=== PATIENT | female | born 1960 | race Caucasian/White ===

== ENCOUNTER 2023-04-12 02:37 | Inpatient (IN) | payer OTHER, SELFPAY ==
[2023-04-11 20:29] VITALS: BP 116/68
[2023-04-12 00:06] VITALS: BMI 22.7
--- NOTE | 2023-04-12 01:09 | ED.GENMED ---
History of Present Illness
General
Chief Complaint: Breathing Problem
Source: patient
Exam Limitations: none
Time Seen by Provider: 04/12/23 00:18
Travel History
Have you had any contact with someone who has COVID-19?: No
Do you have any symptoms of coronavirus? Fever > 100 degrees, chills, cough, shortness of breath, sore throat, loss of taste or smell, muscle aches, or headache?: No
History of Present Illness
History of Present Illness:
This is a 62 year old female that comes in with c/o right sided lower chest pain. States that she was here in January and diagnosed with PNA. States that she started on Tuesday with right lower lung pain that goes up into her shoulder. States that
she went to Urgent Care on Tuesday and they did an X-ray and told her she has Pneumonia. States that they gave her Zithromax but she did not take any until she talked with Dr. Warren. States that he said that is not what he would have use and told
her to come to the ER for evaluation. States that she has had a headache. States that she just finished Amoxicillin on . Denies any fever, chills, SOB, abd pain nausea, vomiting, diarrhea, dizziness, urinary burning.
Past History
Past History
ED Past Medical History: Hypothyroidism, Other (Pneumonia, pleurisy, Sjogren's syndrome, ) and Other (history of bronchitis)
ED Past Surgical History: Gynecological (D. and C.)
Social History
Tobacco: Non-smoker
Alcohol: None
Personal:
Living: with family
Employment: Employed
Family History
Family History: Other (Noncontributory)
Review of Systems
Review of Systems
All Other Systems: ROS reviewed and negative except as documented in HPI and ROS
Constitutional: Reports no symptoms; Denies fever or chills
Respiratory: Reports cough; Denies trouble breathing
Cardiac: Reports chest pain (Right sided up into shoulder)
ABD/GI: Reports no symptoms; Denies abdominal pain, nausea, vomiting or diarrhea
: Reports no symptoms; Denies dysuria, frequency or urgency
Musculoskeletal: Reports no symptoms
Skin: Reports no symptoms
Neurological: Reports headache; Denies dizzy
Psychiatric: Reports no symptoms
Phy Exam
General Physical Exam
General Presentation: no apparent distress
General age: appears stated age
General Skin: warm and dry
General Habitus: normal
General Mental: alert
General Hydration: appears well hydrated
ENT Exam
ENT Exam: TM's normal, pharynx normal and neck supple
Eye Exam
Eye Exam: EOMI
Cardiovascular Exam
Cardiovascular Exam: regular rate/rhythm, no edema, no murmur and normal peripheral pulses
Pulmonary Exam
Pulmonary Exam: no respiratory distress, chest non tender, no rhonchi, no wheezing, no cough and other (Very fine crackles at bases)
Gastrointestinal Exam
Gastrointestinal Exam: normal bowel sounds, non tender, soft, no organomegaly, no pulsatile mass and non distended
Musculoskeletal Exam
Musculoskeletal Exam: full ROM and no edema
Skin Exam
Skin Exam: normal color, warm/dry, no rash and no petechia
Psychiatric Exam
Psychiatric Exam: normal mood/affect
Scores
Heart Failure Risk
Heart Failure Risk Score: Not Applicable
Course
Orders/Labs/Results
Orders:
Orders
04/12/23 01:21
Azithromycin 500 mg/250 ml [Zithromax Infusion] 500 mg in 250 ml IV NOW
CefTRIAXone [Rocephin] 1,000 mg IV NOW STA
04/12/23 02:05
Complete Blood Count/With Diff Urgent
Comprehensive Metabolic Panel Urgent
Lactic Acid Urgent
04/12/23 02:17
Admit/Transfer Patient As Directed
Co-Sign Provider:
Level of Care: Inpatient admission
Assign to:: Medical/Surgical
Physician / Group: [email or web address]
Diagnosis: PNA, Pending admission labs
Reason for Hospitalization: PNA , Pending admission labs
Expected length of stay greater than two midnights?: Yes
ELOS- Estimated Length of Stay in days: 3
I certify the patient meets the requirements for IP care: Yes
04/12/23 02:18
Code Status As Directed
Resuscitation Status: Full Code
04/12/23 02:26
CT Chest Pe Study Urgent
Comment:
Reason For Exam: right sided chest pain.
Abnormal Lab Results
04/12/23
02:05
WBC 4.7 L 10^3/uL
(4.8-10.8)
RBC 3.95 L 10^6/uL
(4.20-5.40)
Hct 34.4 L %
(37.0-47.0)
Absolute Lymphs (auto) 1.1 L 10^3/uL
(1.2-3.4)
Monocytes % 13.1 H %
(1.7-9.3)
04/12/23 02:05
04/12/23 02:05
WBC very slightly low. Otherwise labs unremarkable.
Vital Signs
Initial and Last Documented VS:
Initial Vital Signs
Temp Pulse Resp BP Pulse Ox
98 F 72 22 116/68 96
04/11/23 20:29 04/11/23 20:29 04/11/23 20:29 04/11/23 20:29 04/11/23 20:29
Last Documented Vital Signs
Temp Pulse Resp BP Pulse Ox
97.9 F 70 20 120/54 98
04/12/23 04:14 04/12/23 04:14 04/12/23 04:14 04/12/23 04:14 04/12/23 04:14
MDM/Problems Addressed
Differential Diagnosis Includes:
PNA,
MDM/Problems Addressed:
This is a 62 year old female that comes in with c/o right lower lung discomfort that goes up into the shoulder. Patient was seen Tuesday at Urgent care and had a chest x-ray. Told that she had Pneumonia and given Zithromax. Patient did not start this
until she talked with Dr. Warren. States that she was told to come to the ER for evaluation. Patient had just finished Amoxicillin on .
Will check labs.
Back into see patient. Explained that her chest x-ray at shows that patient has bilateral lower lobe Pneumonia. Patient was treated for Pneumonia in January and just finished Amoxicillin on . Will admit for IV antibiotics. Hospitlist
notified.
Chronic conditions affecting care: Other (PNA in the past)
Acute Exacerbation and/or Progression of Chronic Illness:
NA
*Radiology
Radiology exam reviewed: radiology read reviewed (Chest done at on 04/10/23=Bilateral lower lobe Pneumonia. CT chest night hawk- Patchy opacities in the lower lungs suspicious for pneumonia. Notable, much of this appears similar to previous CT
02/03/2023 suggesting chronic or persistent pneumonia, limited without interval imaging for comparison. ), all reviewed NAD by ED Provider (CT cont- Obviously, cannot exclude acute on chronic infection. Some of these opacities also appear quite
nodular, therefore unable to exclude if some of this could reflect metastatic disease. Correlate with patient's symptoms and recommend nonurgent Pulmonolgy and infectious disease consultations. ) and other (CT cont- No pulmonary embolus. No aortic
dissection or aneurysm. Heart size within normal limit. No Pneumothorax Trace right pleural effusion. Mild cardiomegaly. )
*Pulse Oximetry
Patient hypoxic: no
*EKG
Interpreted by ED Provider?: NA
Rate: EKG- N/A
*[employer] Jointer Interpretation
Rate: normal
Heart Rate: 71
Rhythm: sinus
*Critical Care Note
Total Time (30-74mins, 75-104mins- exclusive of procedures): Not Applicable
ED Attending Note
-
Portions of this chart may have been created with voice recognition software.� Occasional wrong word or��sound alike� substitutions may have occurred due to the inherent limitations of voice recognition software.
Discharge Plan
Departure
Patient Disposition: Admit
Date of Disposition: 04/12/23
Time of Disposition: 01:30
Admit to: Med/Surg
Presentation/result/management discussed w/ accepting MD/DO: Hospitalist
Patient with high blood pressure during this ER visit?: No
Condition: Good
Covid-19: Not Applicable
Discharge Problem:
Pneumonia of both lower lobes
Interventions
Interventions:
*Risk Screen - Suicide Last Done: 04/11/23 20:29
*General Assessment Last Done: 04/12/23 00:08
*Neglect/Abuse Screening Last Done: 04/11/23 20:29
ED- Fall Risk Assessment Last Done: 04/12/23 02:45
*ED COVID-19 Vaccine History Last Done: 04/12/23 00:07
ED- Cardiac Assessment Last Done: 04/12/23 04:14
ED- Pulmonary Assessment Last Done: 04/12/23 04:14
--- NOTE | 2023-04-12 02:12 | HPS.HSE ---
Addendum entered and electronically signed by Jack Moses MD 04/12/23 05:53:
CTA chest. - no PE but persistent PNA.
Addendum entered and electronically signed by Jack Moses MD 04/12/23 03:34:
Unremarkable CBC and CMP
Pending procalcitonin.
Pending CTA chest
Original Note:
Family Physician
-
Family Physician: Yahir John
Chief Complaint
-
Rt sided CP
History of Present Illness
62F HX Hypothyroidism, Pneumonia, pleurisy, Sjogren's syndrome, pw Rt sided lower chest pain.
Started on Tuesday with right lower lung pain that goes up into her shoulder. States that she went to Urgent Care on Tuesday and they did an X-ray and told her she has Pneumonia prescribed Zithromax but not yet stated
She just finished Amoxicillin on .
ROS
Denies any fever, chills, SOB, abd pain nausea, vomiting, diarrhea, dizziness, urinary burning.
Medical History
Past Medical History
Past Medical History: Reports Other
Additional Past Medical History:
Hypothyroidism, Other (Pneumonia, pleurisy, Sjogren's syndrome, ) and Other (history of bronchitis)
Past Surgical History: Reports Gynocological (D. and C.))
Social History
Tobacco: Non-smoker
Alcohol: None
Personal:
Employment: Employed
Family History
Family History: Not pertinent
Allergies / Home Medications
Allergies reflects when Allergies were last updated in [facility].
Home Medications with original date entered in [facility]
Allergy/Medication List:
Allergies
Allergy/AdvReac Type Severity Reaction Status Date / Time
Sulfa (Sulfonamide Allergy Unknown Verified 04/11/23 20:33
Antibiotics)
Home Medications
Calcium 1 tab PO DAILY 06/06/12
Synthroid: 50 mcg PO DAILY 06/06/12
multivitamin (Daily Multi-Vitamin tablet) 1 ea PO DAILY 06/06/12
vitamin B complex 1 ea PO DAILY 06/06/12
hydroxychloroquine 200 mg tablet 300 mg PO DAILY 04/12/14
Lactobacillus comb.no7 10 billion cell-FOS 100 mg-inulin 100 mg tablet (Probiotic Complex (Inulin)) 1 ea PO HS 01/15/15
ibuprofen 600 mg tablet 600 mg PO TIDPRN PRN pain, take with food #30 tabs 01/16/15
cephalexin 500 mg capsule 500 mg PO TID #30 caps 07/02/15
doxycycline hyclate 100 mg capsule 100 mg PO BID Lung/breathing issues #20 caps 02/04/23
Review of Systems
-
Constitutional: Reports No Symptoms
EENT: Reports No Symptoms
Respiratory: Reports See HPI
Cardiac: Reports No Symptoms
Abdomen/GI: Reports No Symptoms
: Reports No Symptoms
Musculoskeletal: Reports No Symptoms
Skin: Reports No Symptoms
Neurological: Reports No Symptoms
Endocrine: Reports No Symptoms
Hematologic/Lymphatic: Reports No Symptoms
Psych: Reports No Symptoms
Physical Exam
Vital Signs
Vital Signs
Temp Pulse Resp BP Pulse Ox
98 F 72 22 116/68 97
04/11/23 20:29 04/11/23 20:29 04/11/23 20:29 04/11/23 20:29 04/12/23 00:11
Physical Exam
General: Other (see below )
Laboratory Results
-
Pending admission labs
Data Reviewed
-
Diagnostic Radiology: Report Reviewed by me
Lab Data: Labs Reviewed by me
Impression/Plan
-
Reviewed VS: unremarkable afebrile, BP 116/68
PE
Gen: NAD
HEENT: anicteric
Neck: supple
Lungs: fine basilar rales at basess
Cor: RRR S1S2
Abdomen: soft benign
CRATING AND MOVING ESTIMATOR: AAO3 NFND
MS: no edema
Psych: normal mood/affect
Data: Pending admission labs
04/10/23 CXR: Bibasilar pneumonia.
Last hospitalist admission:
ASSESSMENT & PLAN
Bilateral LL PNA - CAP
Suspect Rt sided pleurisy
HX PNA in January 2023
S/p completed amoxicillin on .
- agree with IV CFTZ and PO Azithromycin
- Tylenol PRN while pending admission labs
- Pending admission labs
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
DVT Px: LMWH
Code: Full code
IP MS
[2023-04-12] MEDS: ROCEPHIN 1000 MG IV (02:19)
[2023-04-12 02:25] LABS: % Basophils 0.4 % (0-2); % Eosinophils 2.5 % (0-6); % Immature Granulocytes 0.2 % (0-0.5); % Lymphocytes 22.5 % (20.5-51.1); % Monocytes 13.1 % (1.7-9.3); % Neutrophils 61.3 % (42.2-75.2); Absolute Eosinophils 0.1 10^3/uL (0-0.7); Absolute Lymphocytes 1.1 10^3/uL (1.2-3.4); Absolute Monocytes 0.6 10^3/uL (0.1-0.6); Absolute Neutrophils 2.9 10^3/uL (1.4-6.5); Hematocrit 34.4 % (37.0-47.0); Hemoglobin 12.1 g/dL (12.0-16.0); Mean Corp Hgb Conc. 35.2 g/dL (33.0-37.0); Mean Corpuscular Hgb 30.6 pg (27.0-31.0); Mean Corpuscular Volume 87.1 fL (81.0-99.0); Mean Platelet Volume 9.6 fL (7.4-10.4); Nucleated Red Blood Cells % 0 %; Platelet Count 187 10^3/uL (130-400); Red Blood Cell Count 3.95 10^6/uL (4.20-5.40); Red Cell Dist. Width 12.1 % (11.5-14.5); White Blood Cell Count 4.7 10^3/uL (4.8-10.8)
[2023-04-12 02:31] LABS: Lactic Acid 0.8 mmol/L (0.7-2.0)
[2023-04-12] MEDS: ZITHROMAX INFUSION 250 IV (02:33)
[2023-04-12 02:37] LABS: ALT (SGPT) 16 U/L (0-35); AST (SGOT) 23 U/L (14-36); Albumin 3.6 g/dl (3.5-5.0); Alkaline Phosphatase 97 U/L (38-126); Blood Urea Nitrogen 13 mg/dl (7-17); Calcium 8.7 mg/dl (8.4-10.2); Carbon Dioxide 24 mmol/L (22-30); Chloride 107 mmol/L (98-107); Estimated Creatinine Clearance 82 ml/min; Glucose 95 mg/dl (70-99); Potassium 3.8 mmol/L (3.5-5.1); Sodium 135 mmol/L (135-145); Total Bilirubin 0.5 mg/dl (0.2-1.3); Total Protein 6.5 g/dl (6.3-8.2); eGFR > 60.00
[2023-04-12 03:48] VITALS: BP 124/61
[2023-04-12 04:14] VITALS: BP 120/54
[2023-04-12 04:58] VITALS: BP 139/72; BMI 22.2
[2023-04-12] MEDS: TYLENOL 650 MG PO (05:27)
--- NOTE | 2023-04-12 05:28 | PTCARENOTE ---
Received patient from ER, AAOx4. Patient able to ambulate from stretcher to bed with steady gait. C/o right chest pain, WAXER FLOOR aware and ordered PRN tylenol. Patient oriented to unit, call nolasco in reach. Plan of care continues.
[2023-04-12 05:31] LABS: Hematocrit 35.1 % (37.0-47.0); Hemoglobin 12.1 g/dL (12.0-16.0); Mean Corp Hgb Conc. 34.5 g/dL (33.0-37.0); Mean Corpuscular Hgb 30.6 pg (27.0-31.0); Mean Corpuscular Volume 88.9 fL (81.0-99.0); Mean Platelet Volume 9.8 fL (7.4-10.4); Platelet Count 174 10^3/uL (130-400); Red Blood Cell Count 3.95 10^6/uL (4.20-5.40); White Blood Cell Count 4.6 10^3/uL (4.8-10.8)
[2023-04-12 05:51] LABS: Blood Urea Nitrogen 11 mg/dl (7-17); Calcium 8.4 mg/dl (8.4-10.2); Carbon Dioxide 23 mmol/L (22-30); Chloride 109 mmol/L (98-107); Estimated Creatinine Clearance 82 ml/min; Glucose 88 mg/dl (70-99); Sodium 136 mmol/L (135-145); eGFR > 60.00
[2023-04-12 05:54] LABS: Procalcitonin < 0.05 ng/ml (0.0-0.25)
[2023-04-12 07:00] VITALS: BP 136/64
[2023-04-12] MEDS: PLAQUENIL 200 MG PO (09:03)
[2023-04-12] MEDS: SYNTHROID 50 MCG PO (09:04)
[2023-04-12] MEDS: B COMPLEX w/VITAMIN C 1 CAPLET PO (09:04)
--- NOTE | 2023-04-12 14:49 | W.PN.UPDATE ---
Addendum entered and electronically signed by Pepe Mccollum MD 04/12/23 18:41:
Seen by Dr. Grajeda who communicated with me that the patient would require a bronchoscopy which he is going to arrange as an outpatient and she is cleared from his standpoint for home. He is also not seeing evidence for any bacterial pneumonia
currently. From his standpoint no indication for antibiotics.
Patient has been afebrile and nontoxic. Minimal elevation in CRP noted. Again white count normal with normal proBNP. Hold further antibiotics. Patient advised to call pulmonary if there is any fever, cough, phlegm or does not feel well after
discharge. Advised symptomatic treatment of Tylenol and ibuprofen for pleuritic chest pain.
Original Note:
Update Note
Progress Note Update
Admitted for right lower lobe pleuritic chest pain. Admitting diagnosis possible pneumonia
Antibiotics.
Patient without prodrome of respiratory symptoms. No fever, cough or phlegm. . Nontoxic looking.
Chest clear without any respiratory distress. Not hypoxic.
White count normal. Procalcitonin normal.
Chest CT shows
1. No evidence of pulmonary embolism or thoracic aortic dissection.
2. Patchy foci of reticular nodular opacity within each lower lung zone, with associated traction bronchiectasis, similar in appearance compared to 02/03/2023. Differential diagnosis includes acute interstitial pneumonia/pneumonitis, chronic
indolent infection, and chronic interstitial fibrosis.
3. Bilateral lung nodules, similar compared to most distant prior CT dated 02/03/2023. Lung neoplasm and metastatic disease is considered unlikely given sparing of the mid and upper lung zones on each side, however continued CT surveillance is
suggested.
Consult pulmonary to evaluate for any noninfectious lung pathology. She has a history of Sjogren syndrome with prior pneumonias.
Follow culture data and if negative will hold further antibiotics.
[2023-04-12 15:00] VITALS: BP 121/67
--- NOTE | 2023-04-12 15:14 | PTOTSP ---
Patient demonstrates independence with functional mobility, endurance, ambulation and elevations without need for assistive device.
Does not currently demonstrate continued need for skilled therapy and will be discharged at this time. If needs change, please re-consult.
--- NOTE | 2023-04-12 16:11 | CM ---
Chart reviewed. Spoke with pt at bedside
Pt lives in ranch style home with and family members
Independent. driving
No DME
Denies past HH/SNF
PCP -Dr Trevino
Pharm - [facility]
CM will follow for d/c needs
Plan - anticipate home - no needs
[2023-04-12 16:15] LABS: Erythrocyte Sed Rate 34 mm/hour (0-20)
--- NOTE | 2023-04-12 17:14 | CON.PUL ---
Consultation
Consultation Request
Date/Time Consultation Requested: 04-12-23
Date/Time Consultation Performed: 04-12-23
Requesting Provider: Hospitalist
Performing Provider: Dr Grajeda
Reason for Consultation: CP
Medical History
-
Chief Complaint: CP
History of Present Illness:
Mrs Latasha Clark is a 62/W adm 04-11 with recurrent pleuritic CP since Apr 2021, sometimes R sided and sometimes L. She has Sjogren's disease and is on hydroxychloroquine and eye moisturizing drops.
Presents with R lower CP which radiates to shoulder, went to on last Tuesday, reportedly CXR showed pneumonia, prescribed azithromycin but she did not take until consulting with pulm Dr Warren, Dr Warren rec to come to ER.
Reports h/o bilateral CAP (lower lobes, RML) in 02-03-23 (chest CTA negative for PE, D-dimer ^ at 1.45), treated with doxycycline for [address] Warren has been following her for h/o pneumonia, pleuritic CP, bronchiectasis, last visit on 04-07, he
was planning to repeat chest CT to see if previously seen infiltrates in Nov were an acute process that could have resolved or persist indicating a chronic process like [place] or fungal disease, the ultimate plan was to pursue BAL if indicated
Denies dyspnea or wheezing. Occasionally will present a mild cough productive of scanty light yellow sputum. Denies fever, wt loss, NS, chills, difficulties swallowing. 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
LLNS, no h/o 2nd hand smoking
Past Medical History
Past Medical History: Other (see A&P for PMH/PSH)
Social History
Tobacco: Non-smoker
Alcohol: None
Drug: None
Personal:
Living: With Family
Employment: Employed
Family History
Family History: Reviewed & Not Pertinent
Allergies / Home Medications
Allergies
Allergy/AdvReac Type Severity Reaction Status Date / Time
Sulfa (Sulfonamide Allergy Unknown Verified 04/11/23 20:33
Antibiotics)
Home Medications
Medication Instructions Recorded Confirmed Last Taken Type
Calcium 1 tab PO DAILY 06/06/12 04/12/23 04/11/23 08:00 History
Synthroid: 50 mcg PO DAILY 06/06/12 04/12/23 04/11/23 07:00 History
multivitamin (Daily Multi-Vitamin 1 ea PO DAILY 06/06/12 01/15/15 01/15/15 History
tablet)
vitamin B complex 1 ea PO DAILY 06/06/12 04/12/23 04/11/23 08:00 History
hydroxychloroquine 200 mg tablet 200 mg PO DAILY 04/12/14 04/12/23 04/11/23 20:00 History
Lactobacillus comb.no7 10 billion 1 ea PO HS 01/15/15 04/12/23 04/11/23 08:00 History
cell-FOS 100 mg-inulin 100 mg
tablet (Probiotic Complex (Inulin))
ibuprofen 600 mg tablet 600 mg PO TIDPRN PRN pain, take 01/16/15 04/12/23 04/09/23 20:00 Rx
with food #30 tabs
cephalexin 500 mg capsule 500 mg PO TID #30 caps 07/02/15 Unknown Rx
doxycycline hyclate 100 mg capsule 100 mg PO BID Lung/breathing 02/04/23 Unknown Rx
issues #20 caps
Review of Systems
-
History Source: Patient
All other systems: Negative unless noted
Cardiac: Chest Pain (R lower chest)
Vitals / Labs / Diagnostic Testing
Vital Signs
Temp Pulse Resp BP Pulse Ox
98 F 70 18 121/67 96
04/12/23 15:00 04/12/23 15:00 04/12/23 15:00 04/12/23 15:00 04/12/23 15:00
Lab Data
04/12/23 05:13
04/12/23 05:13
Diagnostic Testing:
Physical Exam
-
HEENT: Normocephalic, Moist Mucous Membranes and Thrush (n)
Cardiovascular: Regular Rhythm, Murmur (n), Peripheral Edema (n), Calf Tenderness (n) and JVD (n)
Respiratory: Wheeze (n), Rhonchi (few scattered) and Accessory Resp Muscle Use (n)
GI: Soft, Non Distended and Non Tender
Neurology: Awake, AO x 3 and No Motor Deficits
Skin: Dry
General: Respiratory Distress (n)
Assessment
-
Assessment:
Mrs Latasha Clark is a 62/W adm 04-11 with recurrent pleuritic CP since Apr 2021, sometimes R sided and sometimes L. She has Sjogren's disease and is on hydroxychloroquine. Presents with R lower CP which radiates to shoulder, went to on last
Tuesday, reportedly CXR showed pneumonia, prescribed azithromycin but she did not take until consulting with pulm Dr Warren, Dr Warren rec to come to ER. Reports h/o bilateral CAP (lower lobes, RML) in 02-03-23 (chest CTA negative for PE, D-dimer ^
at 1.45), treated with doxycycline for [address] Warren has been following her for h/o pneumonia, pleuritic CP, bronchiectasis, last visit on 04-07, he was planning to repeat chest CT to see if previously seen infiltrates in Jan were an acute
process that could have resolved or persist indicating a chronic process like [place] or fungal disease.
Impression:
Recurrent R pleuritic CP
RML/RLL/lingular irregular infiltrates with mild progression as c/w Jan 2023
New LLL irregular nodule
Deemed CAP, treated in past with doxycycline
Chronic leukopenia
Chronically elevated ESR
Acute elevation of CRP
Negative PCT
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
Sjogren's disease
Hypothyroidism
Bronchiectasis
CAP Jan 2023
D&C
Nonsmoker
Plan:
POx on RA 98%
No change in mild leukopenia, adequate absolute neutrophils, afebrile, not tachypneic, no hypotensive, negative PCT
Started on ceftriaxone/azithromycin at ER, will d/c
No change in chronic leukopenia
Normal PCT
Candidate for outpatient bronchoscopy for BAL and brushing biopsy, preferably RML, though very peripheral they are the largest target for procedure
Will schedule for later this week or next week depending on availability
D/w Dr Warren
D/w Mrs and Mr Clark
TT Dr Mccollum for discharge this evening
Diagnostic tests:
Chest CTA 04-12-23, c/w 02-03-23
FINDINGS:
Vascular: There is satisfactory opacification of the pulmonary arterial distribution. No filling defect to suggest pulmonary embolus. No evidence of thoracic aortic dissection.
Thyroid: No significant enlargement, and no significant nodules appreciated.
Supraclavicular region: No pathologic lymphadenopathy appreciated.
No pathologic axillary lymphadenopathy on either side.
Mediastinum: No pathologic mediastinal lymphadenopathy. No significant pericardial effusion. No significant coronary arterial calcification.
Lungs: Patchy reticular nodular opacities are seen within each lower lung zone. Bilateral pulmonary nodules measure up to 7 mm in diameter. Bronchiectasis is seen within the lower lobes bilaterally.
Trace right pleural fluid.
No pneumothorax on either side. No evidence of significant emphysema.
Upper abdomen: The visualized upper abdominal organs are within normal limits.
Osseous structures: Visualized osseous structures are within normal limits.
No paraspinal inflammatory change or large paraspinal mass.
IMPRESSION:
1. No evidence of pulmonary embolism or thoracic aortic dissection.
2. Patchy foci of reticular nodular opacity within each lower lung zone, with associated traction bronchiectasis, similar in appearance compared to 02/03/2023. Differential diagnosis includes acute interstitial pneumonia/pneumonitis, chronic
indolent infection, and chronic interstitial fibrosis.
3. Bilateral lung nodules, similar compared to most distant prior CT dated 02/03/2023. Lung neoplasm and metastatic disease is considered unlikely given sparing of the mid and upper lung zones on each side, however continued CT surveillance is
suggested.
--- NOTE | 2023-04-12 18:37 | W.DS.TRANS ---
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
-
Discharge Instructions:
Discharge Diagnosis/Procedures Right-sided pleuritic chest pain with no
evidence of PE; bilateral patchy reticulonodular
opacities with bilateral lung nodules of
unclear etiology
Diet Regular
Activity As tolerated
Driving Restrictions As prior to admission
Bathing Restrictions None
Instructions:
Stand-Alone Forms:
Changes to Home Medications: No
Discharge Medications:
DC Medications w/original date entered in [employer]
Calcium 1 tab PO DAILY 06/06/12
Synthroid: 50 mcg PO DAILY 06/06/12
multivitamin (Daily Multi-Vitamin tablet) 1 ea PO DAILY 06/06/12
vitamin B complex 1 ea PO DAILY 06/06/12
hydroxychloroquine 200 mg tablet 200 mg PO DAILY 04/12/14
Lactobacillus comb.no7 10 billion cell-FOS 100 mg-inulin 100 mg tablet (Probiotic Complex (Inulin)) 1 ea PO HS 01/15/15
ibuprofen 600 mg tablet 600 mg PO TIDPRN PRN pain, take with food #30 tabs 01/16/15
acetaminophen 325 mg tablet 650 mg PO Q4HPRN PRN mild pain/MELENDEZ/temp>100.5 #1 tab 04/12/23
Home Medication Changes
Pending Results: No
--- NOTE | 2023-04-12 18:41 | W.DCSUMMARY ---
Discharge Summary
Discharge Data
Date of Admission: 04/12/23
Date of Discharge: 04/12/23
-
Pending Results: No
Hospital Course
Primary diagnosis:
Right-sided pleuritic chest pain with a negative CT chest for pulmonary embolism
Patchy bilateral reticular nodular opacities in each lower lung zone
Bilateral lung nodules
Secondary diagnosis:
Sjogren syndrome
Hospital course:
Patient with history of Sjogren's syndrome and prior pneumonias presents with right-sided allergic chest pain. She was treated as an outpatient with presumed pneumonia. She finished antibiotics prior to coming into the hospital.
She had no prodrome of respiratory symptoms with cough, sore throat, phlegm, shortness of breath, or fever or chills. She was having a pleuritic chest pain on the right side.
She was afebrile and nontoxic. White count was normal. proBNP was also normal. Minimal elevation of CRP of 28 noted. Chest was clear without any reactive airway disease.
She had a CT chest which showed no evidence of PE. She had a patchy foci of reticular nodular opacity within each lower lung zones with associated traction bronchiectasis similar in appearance from 2022. There were also bilateral lung
nodules similar to prior CT Jan 2023.
Clinically did not look like infectious pneumonia concern was noninfectious/inflammatory process. A pulmonary consultation was obtained who agrees with probably being noninfectious/inflammatory and planning on to arrange for a bronchoscopy for
further evaluation. There is no indication for antibiotics, they were discontinued and was discharged home to follow-up pulmonary.
Consultants on board:
Pulmonary Dr. Grajeda
Discharge Plan
-
Patient Disposition: Home (Routine Discharge)
Discharge Diagnosis/Procedures: Right-sided pleuritic chest pain with no evidence of PE; bilateral patchy reticulonodular opacities with bilateral lung nodules of unclear etiology
Condition: Fair
Diet: Regular
Activity: As tolerated
Driving Restrictions: As prior to admission
Bathing Restrictions: None
Referrals:
Yahir John [Family Provider] -
Moisés Grajeda MD [Active] - in one to two weeks
Prescriptions:
New
acetaminophen 325 mg Tablet
650 mg PO Q4HPRN PRN (Reason: mild pain/MELENDEZ/temp>100.5) Qty: 1 0RF
Continued
multivitamin [Daily Multi-Vitamin] 1 EACH tablet
1 ea PO DAILY
vitamin B complex 1 EACH tablet
1 ea PO DAILY
Calcium
1 tab PO DAILY
Synthroid:
50 mcg PO DAILY
Patient Comments:
Unsure of dosages
hydroxychloroquine 200 MG tablet
200 mg PO DAILY
Probiotic Complex (Inulin) 1 EACH tablet
1 ea PO HS
ibuprofen 600 MG tablet
600 mg PO TIDPRN PRN (Reason: pain, take with food) Qty: 30 0RF
Discontinued
cephalexin 500 MG capsule
500 mg PO TID Qty: 30 0RF
doxycycline hyclate 100 mg capsule
100 mg PO BID Qty: 20 0RF
Discharge Orders:
Discharge Patient (As Directed); Ordered 04/12/23
Ordered By: Pepe Mccollum
== END 2023-04-12 19:48 | disposition home or self-care (01) | DRG 204 ==
LOC: 4 EAST ACU 02:37
PROVIDERS: Clinical Nurse Specialist Family Health; ADMITTING PHYSICIAN Internal Medicine; ATTENDING PHYSICIAN Internal Medicine; CONSULT PHYSICIAN Internal Medicine Pulmonary Disease; EMERGENCY PHYSICIAN Emergency Medicine; FAMILY PHYSICIAN Family Medicine
DX: R07.81 Pleurodynia (principal); J47.9 Bronchiectasis, uncomplicated; E03.9 Hypothyroidism, unspecified; M35.00 Sjogren syndrome, unspecified; R91.8 Other nonspecific abnormal finding of lung field; D72.819 Decreased white blood cell count, unspecified; Z88.2 Allergy status to sulfonamides; Z87.01 Personal history of pneumonia (recurrent)
CPT/HCPCS: 71275; 80048; 80053; 83605; 84145; 85025; 85027; 85652; 86140; 97116; 97161; 99285; Q9967

== ENCOUNTER 2023-04-18 06:24 | Day surgery (SDC) | payer OTHER, SELFPAY ==
[2023-04-18] VITALS (9 sets, daily range): BP systolic 95–141; BP diastolic 47–62; BMI 22.4
[2023-04-18 17:16] LABS: Brochalveolar Lavage Character Hazy (Clear); Brochalveolar Lavage Color Pink; Brochalveolar Lavage Volume 21 ml; Brochalveolar Lavage WBC 2596000 cells/ml
[2023-04-18 18:49] LABS: BAL Macrophages 2 %
[2023-04-18 18:50] LABS: BAL Neutrophils 92 %
[2023-04-18 18:51] LABS: BAL Lymphocytes 6 %
== END 2023-04-18 15:10 | disposition home or self-care (01) ==
LOC: SDS 06:24
PROVIDERS: ATTENDING PHYSICIAN Internal Medicine Critical Care Medicine
DX: J98.11 Atelectasis (principal); J15.8 Pneumonia due to other specified bacteria; A31.0 Pulmonary mycobacterial infection
CPT/HCPCS: 31624; 31645; 87015; 87070; 87102; 87116; 87153; 87158; 87205; 88112; 89051

== ENCOUNTER → 2023-07-18 14:59 | Outpatient (REF) | payer OTHER, SELFPAY | LOC: RAD 14:59 | PROVIDERS: ATTENDING PHYSICIAN Internal Medicine Rheumatology; FAMILY PHYSICIAN Family Medicine | DX: M81.0 Age-related osteoporosis without current pathological fracture (principal); Z13.820 Encounter for screening for osteoporosis | CPT/HCPCS: 77080 ==

== ENCOUNTER → 2023-08-02 18:15 | Outpatient (REF) | payer OTHER, SELFPAY | LOC: WDC 18:15 | PROVIDERS: ATTENDING PHYSICIAN Obstetrics & Gynecology; FAMILY PHYSICIAN Family Medicine | DX: Z12.31 Encounter for screening mammogram for malignant neoplasm of breast (principal) | CPT/HCPCS: 77063; 77067 ==

== ENCOUNTER → 2023-10-10 17:13 | Outpatient (REF) | payer OTHER, SELFPAY | LOC: RAD 17:13 | PROVIDERS: ATTENDING PHYSICIAN Internal Medicine Rheumatology; FAMILY PHYSICIAN Family Medicine | DX: M25.562 Pain in left knee (principal); M35.00 Sjogren syndrome, unspecified | CPT/HCPCS: 73560; 73565 ==

== ENCOUNTER → 2023-11-27 08:08 | Outpatient (REF) | payer OTHER, SELFPAY | LOC: MRI 3T 08:08 | PROVIDERS: ATTENDING PHYSICIAN Internal Medicine Rheumatology; FAMILY PHYSICIAN Family Medicine | DX: M17.9 Osteoarthritis of knee, unspecified (principal); M35.00 Sjogren syndrome, unspecified; R93.89 Abnormal findings on diagnostic imaging of other specified body structures | CPT/HCPCS: 73721 ==

== ENCOUNTER → 2024-05-30 08:55 | Outpatient (REF) | payer BC, SELFPAY | LOC: RAD 08:55 | PROVIDERS: ATTENDING PHYSICIAN Family Medicine | DX: R04.2 Hemoptysis (principal) | CPT/HCPCS: 71046 ==

== ENCOUNTER → 2024-07-21 11:14 | Outpatient (REF) | payer BC, SELFPAY | LOC: RAD 11:14 | PROVIDERS: ATTENDING PHYSICIAN Internal Medicine Critical Care Medicine; FAMILY PHYSICIAN Family Medicine; REFERRING PHYSICIAN Internal Medicine Rheumatology | DX: J47.9 Bronchiectasis, uncomplicated (principal); D84.9 Immunodeficiency, unspecified; R91.8 Other nonspecific abnormal finding of lung field; R04.2 Hemoptysis | CPT/HCPCS: 71250 ==

== ENCOUNTER → 2024-08-06 18:31 | Outpatient (REF) | payer BC, SELFPAY | LOC: WDC 18:31 | PROVIDERS: ATTENDING PHYSICIAN Obstetrics & Gynecology; FAMILY PHYSICIAN Family Medicine | DX: Z12.31 Encounter for screening mammogram for malignant neoplasm of breast (principal) | CPT/HCPCS: 77063; 77067 ==

== ENCOUNTER → 2024-09-05 13:23 | Outpatient (REF) | payer BC, SELFPAY | LOC: RAD 13:23 | PROVIDERS: ATTENDING PHYSICIAN Obstetrics & Gynecology; FAMILY PHYSICIAN Family Medicine | DX: R10.2 Pelvic and perineal pain (principal) | CPT/HCPCS: 76830; 76856 ==

== ENCOUNTER → 2024-10-22 14:53 | Outpatient (REF) | payer BC, SELFPAY | LOC: EMG 14:53 | PROVIDERS: ATTENDING PHYSICIAN Physician Assistant; FAMILY PHYSICIAN Family Medicine | DX: M79.671 Pain in right foot (principal); M79.672 Pain in left foot; R20.2 Paresthesia of skin; R20.0 Anesthesia of skin | CPT/HCPCS: 95886; 95911 ==

== ENCOUNTER → 2024-11-06 09:21 | Outpatient (REF) | payer BC, SELFPAY | LOC: HWRAD 09:21 | PROVIDERS: ATTENDING PHYSICIAN Internal Medicine Critical Care Medicine; FAMILY PHYSICIAN Family Medicine | DX: R91.1 Solitary pulmonary nodule (principal) | CPT/HCPCS: 71250 ==

== ENCOUNTER → 2025-02-09 10:01 | Outpatient (REF) | payer BC, SELFPAY ==
[2025-02-09 11:06] LABS: Hematocrit 40.4 % (37.0-47.0); Hemoglobin 13.0 g/dL (12.0-16.0); Mean Corp Hgb Conc. 32.2 g/dL (33.0-37.0); Mean Corpuscular Volume 93.3 fL (81.0-99.0); Platelet Count 220 10^3/uL (130-400); Red Cell Dist. Width 12.6 % (11.5-14.5)
[2025-02-09 12:07] LABS: ALT (SGPT) 19 U/L (0-35); AST (SGOT) 25 U/L (14-36); Albumin 4.0 g/dl (3.5-5.0); Alkaline Phosphatase 105 U/L (38-126); Blood Urea Nitrogen 17 mg/dl (7-17); Calcium 8.9 mg/dl (8.4-10.2); Carbon Dioxide 28 mmol/L (22-30); Chloride 104 mmol/L (98-107); Glucose 86 mg/dl (70-99); Potassium 4.2 mmol/L (3.5-5.1); Sodium 138 mmol/L (135-145); Total Protein 7.1 g/dl (6.3-8.2); eGFR > 60.00
== END ==
LOC: REG 10:01
PROVIDERS: ATTENDING PHYSICIAN Student in an Organized Health Care Education/Training Program; FAMILY PHYSICIAN Family Medicine
DX: A31.0 Pulmonary mycobacterial infection (principal)
CPT/HCPCS: 36415; 80053; 85027; 93005